=== PATIENT | male | born 1970 | race Caucasian/White ===

== ENCOUNTER 2022-12-17 08:01 | Outpatient (REF) | payer OTHER, SELFPAY | END 2022-12-17 08:02 | disposition home or self-care (01) | LOC: HO.BBR 08:01 | PROVIDERS: PCP Internal Medicine; Visit Provider Internal Medicine Hematology | DX: Z13.89 Encounter for screening for other disorder (principal) ==

== ENCOUNTER 2022-12-24 09:05 | Outpatient (REF) | payer OTHER, SELFPAY | END 2022-12-24 09:06 | disposition home or self-care (01) | LOC: HO.BBR 09:05 | PROVIDERS: PCP Internal Medicine; Visit Provider Internal Medicine Hematology | DX: Z13.89 Encounter for screening for other disorder (principal) ==

== ENCOUNTER 2023-01-07 08:07 | Outpatient (REF) | payer OTHER, SELFPAY | END 2023-01-07 08:08 | disposition home or self-care (01) | LOC: HO.BBR 08:07 | PROVIDERS: PCP Internal Medicine; Visit Provider Internal Medicine Hematology | DX: Z13.89 Encounter for screening for other disorder (principal) ==

== ENCOUNTER 2023-01-14 08:15 | Outpatient (REF) | payer OTHER, SELFPAY | END 2023-01-14 08:16 | disposition home or self-care (01) | LOC: HO.BBR 08:15 | PROVIDERS: Visit Provider Internal Medicine Hematology | DX: Z13.89 Encounter for screening for other disorder (principal) ==

== ENCOUNTER 2023-01-28 08:10 | Outpatient (REF) | payer OTHER, SELFPAY | END 2023-01-28 08:11 | disposition home or self-care (01) | LOC: HO.BBR 08:10 | PROVIDERS: PCP Internal Medicine; Visit Provider Internal Medicine Hematology | DX: Z13.89 Encounter for screening for other disorder (principal) ==

== ENCOUNTER 2023-02-04 08:18 | Outpatient (REF) | payer OTHER, SELFPAY | END 2023-02-04 08:19 | disposition home or self-care (01) | LOC: HO.BBR 08:18 | PROVIDERS: PCP Internal Medicine; Visit Provider Internal Medicine Hematology | DX: Z13.89 Encounter for screening for other disorder (principal) ==

== ENCOUNTER 2023-02-11 08:11 | Outpatient (REF) | payer OTHER, SELFPAY | END 2023-02-11 08:12 | disposition home or self-care (01) | LOC: HO.BBR 08:11 | PROVIDERS: PCP Internal Medicine; Visit Provider Internal Medicine Hematology | DX: Z13.89 Encounter for screening for other disorder (principal) ==

== ENCOUNTER 2023-02-18 08:10 | Outpatient (REF) | payer OTHER, SELFPAY | END 2023-02-18 08:11 | disposition home or self-care (01) | LOC: HO.BBR 08:10 | PROVIDERS: Visit Provider Internal Medicine Hematology | DX: Z13.89 Encounter for screening for other disorder (principal) ==

== ENCOUNTER 2023-03-04 08:08 | Outpatient (REF) | payer OTHER, SELFPAY | END 2023-03-04 08:09 | disposition home or self-care (01) | LOC: HO.BBR 08:08 | PROVIDERS: PCP Internal Medicine; Visit Provider Internal Medicine Hematology | DX: Z13.89 Encounter for screening for other disorder (principal) ==

== ENCOUNTER 2023-03-18 08:11 | Outpatient (REF) | payer OTHER, SELFPAY | END 2023-03-18 08:12 | disposition home or self-care (01) | LOC: HO.BBR 08:11 | PROVIDERS: PCP Internal Medicine; Visit Provider Internal Medicine Hematology | DX: Z13.89 Encounter for screening for other disorder (principal) ==

== ENCOUNTER 2023-04-01 08:15 | Outpatient (REF) | payer OTHER, SELFPAY | END 2023-04-01 08:16 | disposition home or self-care (01) | LOC: HO.BBR 08:15 | PROVIDERS: PCP Internal Medicine; Visit Provider Internal Medicine Hematology | DX: Z13.89 Encounter for screening for other disorder (principal) ==

== ENCOUNTER 2023-04-15 08:10 | Outpatient (REF) | payer OTHER, SELFPAY | END 2023-04-15 08:11 | disposition home or self-care (01) | LOC: HO.BBR 08:10 | PROVIDERS: PCP Internal Medicine; Visit Provider Internal Medicine Hematology | DX: Z13.89 Encounter for screening for other disorder (principal) ==

== ENCOUNTER 2023-04-29 08:13 | Outpatient (REF) | payer OTHER, SELFPAY | END 2023-04-29 08:14 | disposition home or self-care (01) | LOC: HO.BBR 08:13 | PROVIDERS: PCP Internal Medicine; Visit Provider Internal Medicine Hematology | DX: Z13.89 Encounter for screening for other disorder (principal) ==

== ENCOUNTER 2023-05-06 08:12 | Outpatient (REF) | payer OTHER, SELFPAY | END 2023-05-06 08:13 | disposition home or self-care (01) | LOC: HO.BBR 08:12 | PROVIDERS: PCP Internal Medicine; Visit Provider Internal Medicine Hematology | DX: Z13.89 Encounter for screening for other disorder (principal) ==

== ENCOUNTER 2023-05-20 08:12 | Outpatient (REF) | payer OTHER, SELFPAY | END 2023-05-20 08:13 | disposition home or self-care (01) | LOC: HO.BBR 08:12 | PROVIDERS: PCP Internal Medicine; Visit Provider Internal Medicine Hematology | DX: Z13.89 Encounter for screening for other disorder (principal) ==

== ENCOUNTER 2024-10-18 08:22 | Outpatient (REF) | payer OTHER, SELFPAY ==
--- OUTSIDE RECORDS SUMMARY | 2024-10-18 09:01 | XMS_ITS | Clinical Summary ---
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
== END 2024-10-18 08:23 | disposition home or self-care (01) ==
LOC: HO.BBR 08:22
PROVIDERS: PCP Internal Medicine; Visit Provider Internal Medicine Hematology
DX: Z13.89 Encounter for screening for other disorder (principal)